=== PATIENT | female | born 1980 | race African-American/Black ===

== ENCOUNTER 2022-03-28 10:00 | Emergency (ER) | payer MEDICAID, OTHER ==
[~2022-03-28] VITALS: Ht 170.2 cm; Wt 106.7 kg
[2022-03-28 10:59] VITALS: BP 143/100
[2022-03-28] MEDS ORDERED: IPRATROPIUM BROM 0.5 MG/2.5ML INH SOL NEB ONE (11:00)
[2022-03-28] MEDS ORDERED: ALBUTEROL SULF 2.5 MG/0.5ML(0.5%) NEB SOLN NEB ONE (11:00)
[2022-03-28] MEDS ORDERED: PRED20TA2 PO (12:45)
[2022-03-28] MEDS ORDERED: ALBU108A5 IN (12:45)
== END 2022-03-28 12:56 | disposition home or self-care (01) ==
LOC: ER 10:04
DX: J98.01 Acute bronchospasm (principal)
CPT/HCPCS: 71045; 94640; 99283; J7644